=== PATIENT | male | born 1965 | race Caucasian/White ===

== ENCOUNTER 2022-12-23 11:00 | Outpatient (CLI) | payer OTHER, SELFPAY | END 2022-12-23 11:01 | disposition home or self-care (01) | PROVIDERS: PCP Physician Assistant Medical; Visit Provider Physician Assistant Medical | DX: Z00.00 Encounter for general adult medical examination without abnormal findings (principal); R79.89 Other specified abnormal findings of blood chemistry; Z11.59 Encounter for screening for other viral diseases; Z13.6 Encounter for screening for cardiovascular disorders; Z12.5 Encounter for screening for malignant neoplasm of prostate | CPT/HCPCS: 80053; 80061; 84153; 86703; 86803 ==

== ENCOUNTER 2023-02-01 06:07 | Day surgery (SDC) | payer OTHER, SELFPAY ==
[2023-02-01] VITALS (10 sets, daily range): BP systolic 129–142; BP diastolic 70–82; PULSE 64–88; RESP 12–16; TEMP 36.6–36.9; O2SAT 99–100; BMI 24.3
[2023-02-01] MEDS: SODIUM CHLORIDE 0.9 % (FLUSH) 10 ML SYRINGE IVF (06:40)
[2023-02-01] MEDS: LACTATED RINGERS 1000 ML 1,000 ML 100 ML IV (06:40)
--- NOTE | 2023-02-01 07:23 | W.PM.H&PU ---
History & Physical Update History & Physical Update H&P Reviewed and patient assessed: No changes noted
--- NOTE | 2023-02-01 07:25 | PM.GSPRC ---
Operative Note Date of procedure: 02/01/23 Pre-op diagnosis: 1. Symptomatic right inguinal hernia. Post-op diagnosis: 1. Indirect right inguinal hernia with weak inguinal floor. Type of Procedure: 1. Open right inguinal hernia repair with mesh. Indications: 57-year-old male was seen in clinic for evaluation of a right inguinal hernia. Patient states that he noticed the right groin bulge about 2 years ago. The bulge has gotten slightly bigger. He states that he occasionally has pain at the bulge with activities. 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 on clinical exam with the patient standing up there was a moderately-sized right inguinal hernia that was reducible. A gonzalez of air was heard when reducing the hernia. Given patient's clinical history and his physical exam, an open right inguinal hernia repair was recommended. The procedure was discussed in detail. The risks associated procedure including infection, bleeding, hernia recurrence, and nerve pain and nerve injury were all discussed with the patient, and he agreed to proceed. Procedure Description: After discussing the risks and benefits of the procedure, the patient signed informed consent.? The operative site was marked and the patient was brought to the operating room and placed on the operating table in supine position.? Care was taken to pad the patient's pressure points.?? The patient was then intubated by anesthesia.?? The operative site was then prepped and draped in the usual sterile fashion.? A time-out was then performed. Surgical site was prepped and draped in sterile fashion in the right lower abdomen. Site of the incision was marked with a marking pen and local anesthetic was injected. An oblique incision was made just above and medial to right inguinal ligament. Subcutaneous tissue was dissected to external obliques. Superficial subcutaneous vascular branches were clamped, divided and tied with 3-0 Vicryl ties. Small incision was made through the external oblique aponeurosis with scalpel. I then used Metzenbaum scissors to dissect under external obliques and extend my incision. Mosquito clamps were placed on the edges of external oblique exposing the inguinal floor. The right Ilioinguinal nerve was identified and was going through the plain of dissection. The nerve was divided proximally and distally and a 3 cm segment of it was excised. This was not sent to pathology. The right spermatic cord was attached to the external oblique inferiorly with the scar tissue. This was divided bluntly and with Metzenbaum scissors. I then identified the spermatic cord and the hernia sac. I bluntly dissected subcutaneous tissues in order to place [place] drain around the cord structures. Cremasteric fibers were peeled off and dissected off the hernia sac and cord structures. The inguinal floor was weak and encasing the indirect hernia sac. The cremasteric muscles were then divided with Metzenbaum scissors and the hernia sac was identified. The hernia sac was from the spermatic cord bluntly and with cautery. The inferior epigastric were also identified and care was taken not to injure those. The indirect hernia sac was incised and examined from the inside. No intraabdominal organs were incarcerated in the hernia sac. A stitch using 2-0 Vicryl was placed near the base of the hernia sac through the sac and the hernia sac tied off. Hernia sac was then excised and not sent to pathology. The cut edge of the hernia sac was then oversewn with a running locking Vicryl suture. This was then pushed into preperitoneal space through the internal ring. Surgical field was examined for bleeding and hemostasis was achieved with cautery. A Bard mesh onlay was also used for hernia repair. The mesh onlay was sutured in place with interrupted 0-0 Neurolon sutures to the conjoint tendon medially and shelving edge laterally, pubic tubercle inferiorly. Simple interrupted sutures were placed using 0-0 Neurolon at the base of internal inguinal ring making it only large enough to fit a tip of one finger through. Spermatic cord was placed back into scrotum. [place] drain was removed. External oblique aponeurosis was closed with a running 3-0 Vicryl. Additional local anesthetic was injected into subcutaneous tissues. Talon's fascia and subcutaneous tissue was re-approximated with interrupted Vicryl stitches. Skin incision was closed with 4-0 Monocryl subcuticular stitch. Steri strips and sterile dressing were applied over incision. All counts were correct at the end of the case. Patient tolerated this procedure well and was transferred to PACU in stable condition. Findings: moderately-sized indirect hernia with weak inguinal floor. Anesthesia: GETA Surgeon: Merissa Cleaning MD Estimated blood loss (mL): 5 Condition: stable Disposition: PACU
[2023-02-01] MEDS: CEFAZOLIN 2 GM INJ IVP (07:38)
[2023-02-01] MEDS: BUPIVACAINE 0.25% 30 ML 14 ML INJECTION (08:45)
--- NOTE | 2023-02-01 09:11 | W.ANESCHARGE ---
Anesthesia Charges Start Date/Time Anesthesia Start Date: 02/01/23 Anesthesia Start Time: 07:28 Stop Date/Time Anesthesia Stop Date: 02/01/23 Anesthesia Stop Time: 09:04
== END 2023-02-01 10:15 | disposition home or self-care (01) ==
PROVIDERS: PCP Physician Assistant Medical; Visit Provider Surgery
PROC: (CPT 49505; principal; 2023-02-01 07:30)
DX: K40.90 Unilateral inguinal hernia, without obstruction or gangrene, not specified as recurrent (principal)
CPT/HCPCS: 49505; 00830; C1781; J0330; J0665; J0690; J1100; J2250; J2405; J2704; J3010; J7120

== ENCOUNTER 2023-03-24 11:00 | Outpatient (CLI) | payer OTHER, SELFPAY ==
--- OUTSIDE RECORDS SUMMARY | 2023-03-24 11:11 | XMS_ITS | Clinical Summary ---
Author Name Unknown Organization [facility] Address [place], [place] [address] Care Team Providers Care It Program Manager Name Role Phone [facility] Primary Care Provider Unavailabl e Allergies No known active allergies Medications No known medications Active Problems Problem Noted Date Diagnosed Date Adenomatous colon polyp 01/20/2018 Overview: Colonoscopy 01/2018 polyp, repeat in 5 years Immunizations Name Administration Dates Next Due Influenza, IIV4 11/10/2017 Tdap 11/10/2017 Family History Medical History Relation Name Comments Aneurysm Father Brain Cancer-colon Maternal Grandmother Cancer-ovarian Mother Dementia Paternal Grandfather Relation Name Status Comments Father Maternal Grandfather Maternal Grandmother Mother Paternal Grandfather Paternal Grandmother Social History Tobacco Use Types Packs/Day Years Used Date Smoking Tobacco: Never Smokeless Tobacco: Never Tobacco Cessation:Counseling Given: Yes Alcohol Use Standard Drinks/Week Comments Yes 0 (1 standard drink = 0.6 oz pur e alcohol) 1-2 drinks per 6 months PHQ-2 Answer Date Recorded PHQ-2 Score 0 04/17/2018 Sex and Gender Information Value Date Recorded Sex Assigned at Not on file Gender Identity Not on file Sexual Orientation Not on file Obstetrics History Last Filed Vital Signs Vital Sign Reading Time Taken Comments Blood Pressure 152/90 11/10/2017 9:31 AM CDT Pulse 82 11/10/2017 9:31 AM CDT Temperature - - Respiratory Rate - - Oxygen Saturation - - Inhaled Oxygen Concentration - - Weight 124.1 kg (273 lb 9.6 oz) 11/10/2017 9:31 AM CDT Height 182.5 cm (5' 11.85) 11/10/2017 9:31 AM C DT Body Mass Index 37.26 11/10/2017 9:31 AM CDT Plan of Treatment Health Maintenance Due Date Last Done Comments COVID-19 vaccine series (#1) 01/30/1965 HIV for age 15-65 08/01/1979 Hepatitis C screening for ag e 18-79 1982 Zoster (shingles) series for age 50+ (1 of 2) 2014 BMI (ht and wt on same day) for age 18+ 11/10/2018 11/10/2017 Depression screening for age 12+ 11/11/2018 11/11/2017, 11/10/2017 Influenza for age 50-64 10/16/2022 11/10/2017 Lipids for age 45-75 11/10/2022 11/10/2017 Colonoscopy through age 75 01/19/202301/19, 01/19/2018 Tetanus booster 11/11/2027 11/10/2017 Tdap Completed 11/10/2017 Pneumococcal series for age 6-64 Aged Out No longer eligible b ased on patient's age to complete this topic Care Teams It Program Manager Relationship Specialty Start Date End Date Janie [facility] PCP - General 10/20/17
--- OUTSIDE RECORDS SUMMARY | 2023-03-24 11:11 | XMS_ITS | Referral Summary ---
Author Name Unknown Organization [facility] Address [address] [place] [address] Care Team Providers Care Metal Fitters And Machinists Name Role Phone Clinic, [facility] Primary Care Provider Allergies Active Allergy Reactions Criticality Noted Date Comments No Known Drug Allergy 11/14/2001 Medications Medication Sig Dispensed Refills Start Date End Date Status omeprazole (PRILOSEC) [address] capsule Take 20 mg by mouth daily 0 Active vitamin C (ASCORBIC ACID) 1000 MG TABS Take 1,000 mg by mouth daily 0 Active Active Problems Problem Noted Date Diagnosed Date SBO (small bowel obstruction) 04/28/2018 Small bowel obstruction 04/28/2018 Social History Tobacco Use Types Packs/Day Years Used Date Smoking Tobacco: Never Smokeless Tobacco: Never Tobacco Cessation:Counseling Given: Yes Alcohol Use Standard Drinks/Week Comments Yes 0 (1 standard drink = 0.6 oz pur e alcohol) 2 beer per week Sex and Gender Information Value Date Recorded Sex Assigned at Not on file Gender Identity Not on file Sexual Orientation Not on file Last Filed Vital Signs Vital Sign Reading Time Taken Comments Blood Pressure 120/80 05/23/2018 10:51 AM CDT Pulse 84 05/23/2018 10:51 AM CDT Temperature 36.8 ??C (98.3 ??F) 05/04/2018 8:02 AM CD T Respiratory Rate 16 05/23/2018 10:51 AM CDT Oxygen Saturation 98% 05/23/2018 10:51 AM CDT Inhaled Oxygen Concentration - - Weight 83 kg (183 lb) 05/23/2018 10:51 AM CDT Height 182.2 cm (5' 11.75) 05/23/2018 10:51 AM CDT Body Mass Index 24.99 05/23/2018 10:51 AM CDT Plan of Treatment Not on file Advance Directives For more information, please contact: [phone] Latest Code Status on File Code Status Date Activated Date Inactivated Comments Full Code 05/04/2018 9:06 AM Question Answer Comments Code status determined by: Discussion wi th patient/legal decision maker Code Status History Code Status Date Activated Date Inactivated Comments Full Code 04/28/2018 12:44 PM 05/04/2018 9:06 AM Question Answer Comments Code status determined by: Discussion wi th patient/legal decision maker Care Teams Metal Fitters And Machinists Relationship Specialty Start Date End Date [place] [phone] PCP - General 04/28/18
--- OUTSIDE RECORDS SUMMARY | 2023-03-24 11:11 | XMS_ITS | Clinical Summary ---
Author Name Unknown Organization [facility] Address [address] [place] [address] Care Team Providers Care Software Development Specialist Name Role Phone [facility], [facility] Primary Care Provider Allergies Active Allergy [...] bowel obstruction) 04/28/2018 Small bowel obstruction 04/28/2018 Family History Medical History Relation Comments Gastrointestinal Disease Brother 1 colitis Lipids Brother 2 Cerebrovascular Disease Father 06/23 after CVA due to bolcked carotids Cancer Mother Colon Ca at 63 Relation Status Comments Brother 1 Brother 2 Father Mother cancer Social History Tobacco Use Types Packs/Day Years [...] Advance Directives For more information, please contact: [phone] Latest Code Status on File Code Status Date Activated Date Inactivated Comments Full Code 05/04/2018 9:06 AM Question Answer Comments Code status determined by: Discussion wi th patient/legal decision maker Code Status History Code Status Date Activated Date Inactivated Comments Full Code 04/28/2018 12:44 PM 05/04/2018 9:06 AM Question Answer Comments Code status determined by: Discussion wi patient/legal decision maker Care Teams Software Development Specialist Relationship Specialty Start Date End Date [facility], [address] [id number] PCP - General 04/28/18
== END 2023-03-24 11:01 | disposition home or self-care (01) ==
PROVIDERS: PCP Physician Assistant Medical; Visit Provider Physician Assistant Medical
DX: R97.20 Elevated prostate specific antigen [PSA] (principal)
CPT/HCPCS: G0103

== ENCOUNTER 2023-04-15 11:10 | Outpatient (CLI) | payer OTHER, SELFPAY ==
--- NOTE | 2023-04-15 12:44 | W.ANESCHARGE ---
Anesthesia Charges Start Date/Time Anesthesia Start Date: 04/15/23 Anesthesia Start Time: 12:06 Stop Date/Time Anesthesia Stop Date: 04/15/23 Anesthesia Stop Time: 12:42
--- NOTE | 2023-04-15 15:40 | W.ANESCHARGE ---
Anesthesia Charges Start Date/Time Anesthesia Start Date: 04/15/23 Anesthesia Start Time: 12:06 Stop Date/Time Anesthesia Stop Date: 04/15/23 Anesthesia Stop Time: 12:42
== END 2023-04-15 11:11 | disposition home or self-care (01) ==
LOC: OP CLINIC 11:10
PROVIDERS: PCP Physician Assistant Medical; Visit Provider Surgery
DX: Z12.11 Encounter for screening for malignant neoplasm of colon (principal); K63.5 Polyp of colon; Z86.010 Personal history of colon polyps
CPT/HCPCS: 00811; 45385; 88305; J2704

== ENCOUNTER 2024-01-24 16:33 | Outpatient (CLI) | payer OTHER, SELFPAY ==
--- OUTSIDE RECORDS SUMMARY | 2024-01-24 16:35 | XMS_ITS | Referral Summary ---
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 Gender Identity Not on file Sexual Orientation Not on file 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 Not on file Not on file Last Filed Vital Signs Vital Sign Reading Time Taken Comments Blood Pressure 120/80 05/23/2018 10:51 AM CDT Pulse 84 05/23/2018 10:51 AM CDT Temperature 36.8 C (98.3 F) 05/04/2018 8:02 AM CDT Respiratory Rate 16 05/23/2018 10:51 AM CDT Oxygen Saturation 98% 05/23/2018 10:51 AM CDT Inhaled Oxygen Concentration - - Weight 83 kg (183 lb) 05/23/2018 10:51 AM CDT Height 182.2 cm (5' 11.75) 05/23/2018 10:51 AM CDT Body Mass Index 24.99 05/23/2018 10:51 AM CDT Plan of Treatment Not on file Advance Directives For more information, please contact: [phone] * Full Code (Latest Code Status on File) Date Activated Date Inactivated Comments 05/04/2018 9:06 AM Question Answer Comments Code status determined by: Discussion with heber nt/legal decision maker * Full Code Date Activated Date Inactivated Comments 04/28/2018 12:44 PM 05/04/2018 9:06 AM Question Answer Comments Code status determined by: Discussion with heber nt/legal decision maker Care Teams Vending Machine Refiller Relationship Specialty Start Date End Date [address] [id number] PCP - General 04/28/18
--- OUTSIDE RECORDS SUMMARY | 2024-01-24 16:35 | XMS_ITS | Clinical Summary ---
Author Organization [email or web address] Address [place], [place] [address] Care Team Providers Care Large Sheetfed Press Operator Name Role Phone 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 Not on file Not on file Obstetrics History Last Filed [...] Health Maintenance Due Date Last Done Comments HIV for age 15-65 08/01/1979 Hepatitis C screening for ag e 18-79 1982 Zoster (shingles) series for age 50+ (1 of 2) 2014 BMI (ht and wt on same day) for age 18+ 11/10/2018 11/10/2017 Depression screening for age 12+ 11/11/2018 11/11/2017, 11/10/2017 Lipids for age 45-75 11/10/2022 11/10/2017 Colonoscopy through age 75 01/19/202301/19, 01/19/2018 COVID-19 vaccine series (2023- season) 2023 Influenza for age 50-64 10/17/2023 11/10/2017 Tetanus booster 11/11/2027 11/10/2017 Tdap Completed 11/10/2017 Pneumococcal series for age 6-64 Aged Out No longer eligible b ased on patient's age to complete this topic Procedures Procedure Name Priority Date/Time Associated Diagnosis Comments COLONOSCOPY 01/19/2018 9:52 AM PERCUSSION TEACHER LIPID PANEL W REFLEX MEASURED LDL Routine 11/10/2017 10:00 AM CDT Screening, lipid from Last 3 Months or Most Recently Relevant to Health Maintenance Results * COLONOSCOPY (01/19/2018 9:52 AM PERCUSSION TEACHER) 01/19/2018 9:52 AM PERCUSSION TEACHER Narrative Transcriptions Samson Godoy MD - 01/19/2018 10:57 AM CST Patient Name: Chong Willingham Procedure Date: 01/19/2018 Gender: Male Date of : 1965 Admit Type: Outpatient Procedure: Colonoscopy Proceduralist: Samson Godoy MD , Sharon Hatfield (Nurse) Referring MD: Korin Temple Indications/Pre-Op Diagnosis: Screening for colorectal malignant neoplasm, This is the patient's first colonoscopy Medications: Fentanyl 100 micrograms IV, Midazolam 4 mgIV, The level of sedation administered wasmoderate Procedure Description: The patient had risks, benefits and alternatives explained to andgave informed consent. The patient had a stable cardiopulmonary status and judged an adequate candidate for conscious sedation. The [id number] was passed through the anus and advanced tothe cecum, identified by appendiceal orifice and ileocecal valve. The colonoscopy was performed without difficulty. The patient toleratedthe procedure well. The quality of the bowel preparation was good. The ileocecal valve, appendiceal orifice, and rectum were photographed. Complications: No immediate complications. Estimated Blood Loss & Specimen: Estimated blood loss: none. Specimen collected - Yes and sent to Laboratory Findings: The perianal and digital rectal examinations were normal. A 4 mm polyp was found in the rectum. The polyp was sessile. Thepolyp was removed with a cold snare. Resection and retrieval werecomplete. The exam was otherwise without abnormality on direct and retroflexion views. Impressions/Post-Op Diagnosis: - One 4 mm polyp in the rectum, removed with a cold snare. Resectedand retrieved. - The examination was otherwise normal on direct and retroflexionviews. Recommendation: - Patient has a contact number available for emergencies. The signsand symptoms of potential delayed complications were discussed with the patient. Return to normal activities tomorrow. Written discharge instructions were provided to the patient. - Resume previous diet. - Continue present medications. - Await pathology results. - Repeat colonoscopy is recommended. The colonoscopy date will be determined after pathology results from today's exam become available for review. Moderate Sedation: Moderate (conscious) sedation was administered by the endoscopy nurse and supervised by the endoscopist. The following parameters were monitored: oxygen saturation, heart rate, respiratory rate, blood pressure, adequacy of pulmonary ventilation and reponse to care. Please refer to the patien'ts medical record flowsheets and nursing notes for moderate sedation details. Total physician intraservice time was 14 minutes. Samson Godoy MD 01/19/2018 10:56:43 AM This report has been signed electronically. Note Initiated On: 01/19/2018 9:52 AM Procedure Code(s): --- Professional --- 04332, Colonoscopy, flexible; with removalof tumor(s), polyp(s), or other lesion(s) bysnare technique Diagnosis Code(s): --- Professional --- Z12.11, Encounter for screening formalignant neoplasm of colon K62.1, Rectal polyp CPT copyright 2017 [employer]. All rights reserved. The codes documented in this report are preliminary and upon certified procedural coder reviewmay be revised to meet current compliance requirements. Scope In: 10:40:22 AM Scope Withdrawal Time 0 hours 8 minutes 47 seconds Scope Out: 10:52:34 AM us Samson Godoy MD PROCEDURE ORD Final Res ult * (ABNORMAL) LIPID PANEL W REFLEX MEASURED LDL (11/10/2017 10:00 AM CDT) CHOLESTEROL,TOTAL 239(H) 100 - 199 mg/dL 11/10/2017 5:19 PM CDT [facility] TRIGLYCERIDES 77 <150 mg/dL 11/10/2017 5:19 PM CDT [facility] HDL CHOLESTEROL 49 >40 mg/dL 8 5:19 PM CDT [facility] NON-HDL CHOLESTEROL 190(H) <145 mg/dl 11/10/2017 5:19 PM CDT [facility] CHOL/HDL RATIO 4.88(H) <4.50 11/10/2017 5:19 PM CDT [facility] LDL CHOLESTEROL 175(H) <=130 mg/dL 11/10/2017 5:19 PM CDT [facility] PROVIDER ORDERED STATUS RANDOM 11/10/2017 5:19 PM CDT [facility] Blood BLOOD SPECIMEN / Unknown Venipuncture / Unknown 11/10/2017 10:00 AM CDT 11/10/2017 10:04 AM CDT us Korin Temple MD CHEMISTRY Final R esult [facility] [address] [place] [address], [place] from Last 3 Months or Most Recently Relevant to Health Maintenance Care Teams Large Sheetfed Press Operator Relationship Specialty Start Date End Date Chava [place] PCP - General 10/20/17
--- OUTSIDE RECORDS SUMMARY | 2024-01-24 16:35 | XMS_ITS | Clinical Summary ---
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 Gender Identity Not on file Sexual Orientation [...] Advance Directives For more information, please contact: [phone] * Full Code (Latest Code Status on File) Date Activated Date Inactivated Comments 05/04/2018 9:06 AM Question Answer Comments Code status determined by: Discussion with heber nt/legal decision maker * Full Code Date Activated Date Inactivated Comments 04/28/2018 12:44 PM 05/04/2018 9:06 AM Question Answer Comments Code status determined by: Discussion with heber nt/legal decision maker Care Teams Harvest Field Ticketer Relationship Specialty Start Date End Date [place] [phone] PCP - General 04/28/18
== END 2024-01-24 16:34 | disposition home or self-care (01) ==
PROVIDERS: PCP Physician Assistant Medical; Visit Provider Physician Assistant Medical
DX: R00.2 Palpitations (principal); Z13.228 Encounter for screening for other metabolic disorders; Z13.220 Encounter for screening for lipoid disorders; Z13.29 Encounter for screening for other suspected endocrine disorder
CPT/HCPCS: 80053; 80061; 84443